=== PATIENT | female | born 1990 | race Caucasian/White ===

== ENCOUNTER 2018-10-12 19:25 | Inpatient (IN) | payer OTHER ==
[~2018-10-12 19:25] MED LIST: DEXTROSE 5%-LACTATED RINGERS 500 ML IV ONE; DINOPROSTONE 10 MG VAGINAL SUPPOSITORY VG ONE
[2018-10-12] MEDS: DEXTROSE 5%-LACTATED RINGERS 1,000 ML IV SCH (21:00)
[2018-10-12 21:51] LABS: BASO % 0.2 % (0-2.0); EOS % 0.9 % (0-4.5); HEMATOCRIT 32.9 % (32.4-45.2); HEMOGLOBIN 10.7 GM/dL (10.7-15.3); LYMPH % 10.8 % (8-40); MCH 27.7 pg (25.7-33.7); MCHC 32.5 g/dl (32.0-36.0); MEAN CELL VOLUME 85.4 fl (80-96); MEAN PLT VOLUME 9.7 fl (7.5-11.1); MONO % 5.6 % (3.8-10.2); NEUT % 82.5 % (42.8-82.8); PLATELET COUNT 168 K/MM3 (134-434); RBC 3.85 M/mm3 (3.60-5.2); RDW 14.2 % (11.6-15.6); WHITE BLOOD COUNT 11.9 K/mm3 (4.0-10.0)
[2018-10-12 22:07] LABS: INR 0.98 (0.83-1.09); PROTHROMBIN TIME (PATIENT) 11.6 SEC (9.7-13.0)
[2018-10-12 22:10] LABS: ACTIVATED PTT 28.3 SECONDS (25.2-36.5)
[2018-10-12 22:18] LABS: BLOOD UREA NITROGEN 8.7 mg/dL (7-18); CALCIUM 8.6 mg/dL (8.5-10.1); CREATININE 0.6 mg/dL (0.55-1.3); POTASSIUM 3.7 mmol/L (3.5-5.1)
[2018-10-12] MEDS ORDERED: BUTORPHANOL TARTRATE 1 MG/ML VIAL IVPB PRN (23:00)
[2018-10-12] MEDS ORDERED: ZOLPIDEM TARTRATE 5 MG TABLET PO PRN (23:05)
--- NOTE | 2018-10-12 23:07 | HP ---
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: Alzheimer's, CVA, Dementia, Migraine, Multiple Sclerosis, Peripheral Neuropathy, Parkinson's, Seizure, Syncope, TIA, Vertigo, Other Cardiovascular: No: AFIB, Aneurysm, Aortic Insufficiency, Aortic Stenosis, CAD, CHF, Deep Vein Thrombosis, HTN, Hyperlipdemia, DE, Mitral Insufficiency, Mitral Stenosis, Murmur, Pulmonary Hypertension, Other Pulmonary: No: Asthma, Bronchitis, Cancer, COPD, O2 Dependent, Pneumonia, Previously Intubated, Pulmonary Embolus, Pulmonary Fibrosis, Sleep Apnea, Other Gastrointestinal: No: Ascites, Cancer, Constipation, Crohn's Disease, Diverticulitis, Diverticulosis, Esophageal Varices, Gastritis, GERD, GI Bleed, Hemorrhoids, Hiatal Hernia, Inflamatory Bowel Disease, Irritable Bowel Disease, Pancreatitis, Peptic Ulcer Disease, Ulcerative Colitis, Other Hepatobiliary: No: Cirrhosis, Cholelithiasis, Cholecystitis, Choledocholithiasis , Hepatitis A, Hepatitis B, Hepatitis C, Other Renal/: No: Renal Failure, Renal Inusuff, BPH, Cancer, Hematuria, Hemodialysis , Neurogenic Bladder, Renal Calculi, UTI, Other Reproductive: No: Ectopic , Endometriosis, Fibroids, PID, Polycystic Ovary Syndrome, Postmenopausal, Other ...: 3 ...Para: 1 ...Term: 1 ...: 0 ...Spon : 0 ...Induced : 0 ...Multiple Gestation: 0 ... Weeks Gestation by Dates: 41.2 ...EDC by Dates: 10/03/18 Heme/Onc: No: Anemia, B12 Deficiency, Bleeding Disorder, Cancer, Current Chemotherapy, Current Radiation Therapy, Hemochromatosis, Hypercoaguable State, Myeloproliferative Synd, Sickle Cell Disease, Sickle Cell Trait, Thrombocytopenia, Other Infectious Disease: No: AIDS, C-Diff, Herpes Zoster, HIV, MRSA, STD's, Tuberculosis, VREF, Other Psych: No: Addictions, Anxiety, Bipolar, Depression, Panic, Psychosis, Schizophrenia, Other Musculoskeletal: No: Bursitis, Chronic low back pain, Hemiparesis, Hemiplegia, Osteoarthritis, Paraplegia, Other Rheumatology: No: Fibromyalgia, Gout, Lupus, Rheumatoid Arthritis, Sarcoidosis, Vasculitis, Other ENT: No: Allergic Rhinitis, Sinusitis, Other Endocrine: No: Traverse's Disease, Davi's Disease, Diabetes Insipidus, Diabetes Mellitus, Hyperparathyroidism, Hyperthyroidism, Hypothyroidism, Osteopenia, SIADH, Other Dermatology: No: Basal Cell, Cellulitis, Eczema, Melanoma, Psoriasis, Squamous Cell, Other - Past Surgical History Past Surgical History: Yes: None Hx Myomectomy: No Hx Transabdominal Cerclage: No - Advance Directives Advance Directives: No: Living Will, Health Care Proxy, DNR, Organ Donor, Tissue Donor, MOLST - Smoking History Smoking history: Never smoked Have you smoked in the past 12 months: No - Alcohol/Substance Use Hx Alcohol Use: No History of Substance Use: reports: None - Social History Usual Living Arrangement: Yes: Alone ADL: Independent History of Recent Travel: No Home Medications - Allergies Allergies/Adverse Reactions: Allergies Allergy/AdvReac Type Severity Reaction Status Date / Time No Known Allergies Allergy Verified 10/12/18 23:09 - Home Medications Home Medications: Ambulatory Orders Ferrous Sulfate [Iron] 325 mg PO DAILY 10/12/18 Vitamins (Sjr) - 1 tab PO DAILY 10/12/18 Family Disease History - Family Disease History Family History: Denies Review of Systems - Review of Systems Constitutional: reports: No Symptoms Eyes: reports: No Symptoms HENT: reports: No Symptoms Neck: reports: No Symptoms Cardiovascular: reports: No Symptoms Respiratory: reports: No Symptoms Gastrointestinal: reports: No Symptoms Genitourinary: reports: No Symptoms Breasts: reports: No Symptoms Reported Musculoskeletal: reports: No Symptoms Integumentary: reports: No Symptoms Neurological: reports: No Symptoms Endocrine: reports: No Symptoms Hematology/Lymphatic: reports: No Symptoms Psychiatric: reports: No Symptoms Physical Exam - Maternity Vital Signs: Vital Signs Temperature 98.1 F 10/12/18 21:00 Pulse Rate 91 H 10/12/18 21:00 Respiratory Rate 20 10/12/18 21:00 Blood Pressure 120/66 10/12/18 21:00 O2 Sat by Pulse Oximetry (%) Constitutional: Yes: Well Nourished, No Distress, Calm Eyes: Yes: WNL, Conjunctiva Clear, EOM Intact HENT: Yes: WNL, Atraumatic, Normocephalic Neck: Yes: WNL, Supple, Trachea Midline Cardiovascular: Yes: WNL, Regular Rate and Rhythm Lungs: Clear to auscultation Breast(s): Yes: WNL - Abdominal Exam/OB Fundal Height: 38 Number of Fetuses: Single Presentation: Vertex Contractions: Yes Regularity: Irregular Intensity: Mild/Mod Monitor Mode: External Heart Rate Location: [facility] Category: I Accelerations: Uniform Decelerations: None - Vaginal Exam/OB Vaginal Bleediing: Light Speculum Exam: No Amniotic Membrane Status: Intact Presentation: Vertex/Position Station: -2 - Physical Exam Musculoskeletal: Yes: WNL Extremities: Yes: WNL Edema: Yes Edema: LUE: 1+, RUE: 1+, LLE: 1+, RLE: 1+ Integumentary: Yes: WNL Deep Tendon Reflex Grade: Normal +2 ...Motor Strength: WNL Psychiatric: Yes: WNL, Alert, Oriented - Labs Lab Results: CBC, BMP 10/12/18 21:33 10/12/18 21:33 Hemorrhage Risk Assessment - Risk Factors Risk Score: 0 Risk Level: Low Risk Assessment/Plan: fo Assessment/Plan for possible cervidil and pitocin
[2018-10-13] MEDS: DEXTROSE 5%-LACTATED RINGERS 1,000 ML IV SCH
[2018-10-13] MEDS ORDERED: BUTORPHANOL TARTRATE 2 MG/ML VIAL ONE (01:21)
[2018-10-13] MEDS ORDERED: PROMETHAZINE HCL 25 MG/1 ML VIAL ONE (01:21)
[2018-10-13] MEDS ORDERED: PROMETHAZINE HCL 25 MG/1 ML VIAL IVPB ONE (01:45)
[2018-10-13] MEDS ORDERED: ELECTROLYTE-148 SOLN 1,000 ML IV SCH (04:15)
[2018-10-13] MEDS ORDERED: FENTANYL/BUPIVACAINE/NS/PF - PCEA - 50 ML DISP.SYRIN EP ONE (04:22)
[2018-10-13] MEDS ORDERED: BUPIVACAINE HCL/PF 0.25% (2.5MG/ML) 10 ML VIAL ONE (04:31)
[2018-10-13] MEDS ORDERED: LIDO 2%/EPI 1:200000 PRESRVFRE (20 ML SDVIAL) ONE (04:31)
[2018-10-13] MEDS: FENTANYL/BUPIVACAINE/NS/PF - PCEA - 50 ML DISP.SYRIN EP SCH (04:50)
[2018-10-13] MEDS ORDERED: NALOXONE HCL 0.4 MG/ML VIAL IVPUSH PRN (04:55)
[2018-10-13] MEDS ORDERED: OXYTOCIN 30 UNITS in 0.9% NS 30 UNIT/500 ML INFUS.BAG IVPB ONE (07:52)
[2018-10-13] MEDS ORDERED: OXYTOCIN 20 UNITS in 0.9% NS 20 UNIT/1,000 ML INFUS.BAG IV ONE (07:52)
[2018-10-13] MEDS ORDERED: OXYTOCIN 30 UNITS in 0.9% NS 30 UNIT/500 ML INFUS.BAG IVPB SCH (08:00)
--- NOTE | 2018-10-13 08:01 | PN ---
Progress Note (short form) - Note Progress Note: 5 am, epidural in, cx is 6-7 cm, -2, 70 %, uc are irregular, continue laboring by herself
--- NOTE | 2018-10-13 08:02 | PN ---
Progress Note (short form) - Note Progress Note: 745 am, 8cm, -1, 80%, arom, epidural in, will start pitocin, comfortable, clear fluid
[2018-10-13] MEDS ORDERED: BENZOCAINE 28 GM HEMORRHOIDAL OINTMENT TP PRN (09:19)
[2018-10-13] MEDS ORDERED: oxyCODONE HCL 5 MG TABLET PO PRN (09:19)
[2018-10-13] MEDS ORDERED: BISACODYL 10 MG SUPP.RECT RC PRN (09:19)
[2018-10-13] MEDS ORDERED: BENZOCAINE 20% 57 GM BOTTLE TP PRN (09:19)
[2018-10-13] MEDS ORDERED: METHYLERGONOVINE MALEATE 0.2 MG/1 ML AMP IM PRN (09:19)
[2018-10-13] MEDS ORDERED: WITCH HAZEL 50% (TUCKS) 40 PAD/JAR PAD TP PRN (09:19)
--- NOTE | 2018-10-13 09:25 | PN ---
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
[2018-10-13] MEDS ORDERED: D5W-LR W/ 20 UNITS OXYTOCIN 20 UNIT/1,000 ML INFUS.BAG IV SCH (09:30)
[2018-10-13] MEDS: IBUPROFEN 600 MG TABLET (FP) PO PRN (13:10)
[2018-10-13] MEDS: ACETAMINOPHEN 325 MG TABLET (FP) PO PRN (13:11)
[2018-10-14] MEDS: IBUPROFEN 600 MG TABLET (FP) PO PRN (04:15)
[2018-10-14] MEDS: ACETAMINOPHEN 325 MG TABLET (FP) PO PRN (04:16)
[2018-10-14 07:34] LABS: BASO % 0.2 % (0-2.0); EOS % 1.3 % (0-4.5); HEMATOCRIT 28.1 % (32.4-45.2); HEMOGLOBIN 9.5 GM/dL (10.7-15.3); LYMPH % 12.4 % (8-40); MCH 28.5 pg (25.7-33.7); MCHC 33.8 g/dl (32.0-36.0); MEAN CELL VOLUME 84.3 fl (80-96); MEAN PLT VOLUME 9.8 fl (7.5-11.1); MONO % 5.3 % (3.8-10.2); NEUT % 80.8 % (42.8-82.8); PLATELET COUNT 151 K/MM3 (134-434); RBC 3.33 M/mm3 (3.60-5.2); RDW 14.3 % (11.6-15.6); WHITE BLOOD COUNT 10.8 K/mm3 (4.0-10.0)
[2018-10-14] MEDS ORDERED: DIPHTH,PERTUSS(ACELL),TET 0.5 ML DISP.SYRIN IM ONE (10:00)
--- NOTE | 2018-10-14 14:08 | PN ---
Post Progress Note Post Day: 1 Type of Delivery: Vital Signs: Vital Signs Temperature 97.8 F 10/14/18 09:43 Pulse Rate 81 10/14/18 09:43 Respiratory Rate 20 10/13/18 17:46 Blood Pressure 113/69 10/14/18 09:43 O2 Sat by Pulse Oximetry (%) 100 10/13/18 10:30 Breast Exam: Yes: Soft Uterus: Yes: Fundus Firm, Fundus below umbilicus Abdomen/GI: Yes: Abdomen soft, Passing flatus, Tolerating PO Lochia: Yes: Serosa Lochia, amount: Small Extremities: Yes: Calves non-tender Perineum: Yes: Intact Activity: Ambulating - Labs Labs: CBC WBC 10.8 K/mm3 (4.0-10.0) H 10/14/18 06:39 RBC 3.33 M/mm3 (3.60-5.2) L 10/14/18 06:39 Hgb 9.5 GM/dL (10.7-15.3) L 10/14/18 06:39 Hct 28.1 % (32.4-45.2) L 10/14/18 06:39 MCV 84.3 fl (80-96) 10/14/18 06:39 MCH 28.5 pg (25.7-33.7) 10/14/18 06:39 MCHC 33.8 g/dl (32.0-36.0) 10/14/18 06:39 RDW 14.3 % (11.6-15.6) 10/14/18 06:39 Plt Count 151 K/MM3 (134-434) 10/14/18 06:39 MPV 9.8 fl (7.5-11.1) 10/14/18 06:39 Absolute Neuts (auto) 8.7 K/mm3 (1.5-8.0) H 10/14/18 06:39 Neutrophils % 80.8 % (42.8-82.8) 10/14/18 06:39 Lymphocytes % 12.4 % (8-40) 10/14/18 06:39 Monocytes % 5.3 % (3.8-10.2) 10/14/18 06:39 Eosinophils % 1.3 % (0-4.5) 10/14/18 06:39 Basophils % 0.2 % (0-2.0) 10/14/18 06:39 Nucleated RBC % 0 % (0-0) 10/14/18 06:39 Assessment/Plan dc pt home tomorrow , no complications
--- NOTE | 2018-10-14 14:10 | DS ---
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: Vital Signs Temperature 97.8 F 10/14/18 09:43 Pulse Rate 81 10/14/18 09:43 Respiratory Rate 20 10/13/18 17:46 Blood Pressure 113/69 10/14/18 09:43 O2 Sat by Pulse Oximetry (%) 100 10/13/18 10:30 Constitutional: Yes: Well Nourished, No Distress, Calm Eyes: Yes: WNL, Conjunctiva Clear, EOM Intact HENT: Yes: WNL, Atraumatic, Normocephalic Neck: Yes: WNL, Supple, Trachea Midline Cardiovascular: Yes: WNL, Regular Rate and Rhythm Respiratory: Yes: WNL, Regular, CTA Bilaterally Gastrointestinal: Yes: WNL, Normal Bowel Sounds, Soft ...Rectal Exam: Yes: WNL Renal/: Yes: WNL Pelvis: Yes: WNL External Genitalia: Yes: Normal Internal Exam Deferred: No Vaginal Exam: Yes: Normal Cervix: Yes: Normal Uterus: Yes: Normal Adnexa: Normal: Bilateral ....Post : Yes: Uterus firm, Uterus non-tender Breast(s): Yes: WNL Musculoskeletal: Yes: WNL Extremities: Yes: WNL Edema: LUE: 1+, RUE: 1+, LLE: 1+, RLE: 1+ Integumentary: Yes: WNL Wound/Incision: Yes: Clean/Dry, Well Approximated Neurological: Yes: WNL, Alert, Oriented ...Motor Strength: WNL Psychiatric: Yes: WNL, Alert, Oriented Labs: CBC, BMP 10/14/18 06:39 10/12/18 21:33 Delivery - Delivery Type of Anesthesia: Epidural Episiotomy/Laceration: None EBL (cc): 200 Delivery, Single - Stages of Labor Date 1st Stage Initiatied: 10/13/18 Time 1st Stage Initiated: 01:00 Date 2nd Stage Initiated: 10/13/18 Time 2nd Stage Initiated: 08:55 Date of Delivery: 10/13/18 Time of Delivery: 09:04 Time Placenta Delivered: 09:15 Placenta: Yes: Spontaneous - Condition of Infant Form 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
[2018-10-14] MEDS ORDERED: SENNOSIDES/DOCUSATE COMBO (SENNA PLUS) TABLET (UD) PO PRN (22:00)
--- NOTE | 2018-10-15 07:36 | PN ---
Post Progress Note - Subjective Subjective: doing well Post Day: 2 Type of Delivery: Vital Signs: Vital Signs Temperature 98.2 F 10/14/18 20:36 Pulse Rate 100 H 10/14/18 20:36 Respiratory Rate 20 10/14/18 20:36 Blood Pressure 113/74 10/14/18 20:36 O2 Sat by Pulse Oximetry (%) 100 10/13/18 10:30 Breast Exam: Yes: Soft Uterus: Yes: Fundus Firm, Fundus below umbilicus Abdomen/GI: Yes: Abdomen soft, Passing flatus, Tolerating PO Lochia: Yes: Serosa Lochia, amount: Small Extremities: Yes: Calves non-tender Perineum: Yes: Intact Activity: Ambulating - Labs Labs: CBC WBC 10.8 K/mm3 (4.0-10.0) H 10/14/18 06:39 RBC 3.33 M/mm3 (3.60-5.2) L 10/14/18 06:39 Hgb 9.5 GM/dL (10.7-15.3) L 10/14/18 06:39 Hct 28.1 % (32.4-45.2) L 10/14/18 06:39 MCV 84.3 fl (80-96) 10/14/18 06:39 MCH 28.5 pg (25.7-33.7) 10/14/18 06:39 MCHC 33.8 g/dl (32.0-36.0) 10/14/18 06:39 RDW 14.3 % (11.6-15.6) 10/14/18 06:39 Plt Count 151 K/MM3 (134-434) 10/14/18 06:39 MPV 9.8 fl (7.5-11.1) 10/14/18 06:39 Absolute Neuts (auto) 8.7 K/mm3 (1.5-8.0) H 10/14/18 06:39 Neutrophils % 80.8 % (42.8-82.8) 10/14/18 06:39 Lymphocytes % 12.4 % (8-40) 10/14/18 06:39 Monocytes % 5.3 % (3.8-10.2) 10/14/18 06:39 Eosinophils % 1.3 % (0-4.5) 10/14/18 06:39 Basophils % 0.2 % (0-2.0) 10/14/18 06:39 Nucleated RBC % 0 % (0-0) 10/14/18 06:39 Assessment/Plan dc pt home today
[2018-10-15] MEDS: FENTANYL/BUPIVACAINE/NS/PF - PCEA - 50 ML DISP.SYRIN EP SCH (08:06)
[2018-10-15] MEDS: ACETAMINOPHEN 325 MG TABLET (FP) PO PRN (09:57)
[2018-10-15] MEDS: IBUPROFEN 600 MG TABLET (FP) PO PRN (09:57)
[2018-10-15 11:23] VITALS: BP 120/71; PULSE 109; TEMP 98.3
== END 2018-10-15 11:50 | disposition home or self-care (01) | DRG 807 ==
LOC: JLDR 19:25 → J3W 10-13 11:14
PROVIDERS: ADMIT Obstetrics & Gynecology; ATTEND Obstetrics & Gynecology
PROC: 3E033VJ Introduction of Other Hormone into Peripheral Vein, Percutaneous Approach (ICD-10-PCS; 2018-10-12)
PROC: 10E0XZZ Delivery of Products of Conception, External Approach (ICD-10-PCS; principal; 2018-10-13)
PROC: 3E0R3BZ Introduction of Anesthetic Agent into Spinal Canal, Percutaneous Approach (ICD-10-PCS; 2018-10-13)
DX: O48.0 Post-term pregnancy (principal); Z37.0 Single live birth; Z3A.41 41 weeks gestation of pregnancy
CPT/HCPCS: 36415; 59409; 80048; 85025; 85610; 85730; 86593; 86850; 86900; 86901; 87389; 90715